=== PATIENT | female | born 1975 | race Caucasian/White ===

== ENCOUNTER 2018-03-07 17:46 | Emergency (ER) | payer MEDICAID ==
[~2018-03-07] VITALS: Ht 172.7 cm; Wt 71.4 kg
[~2018-03-07 17:46] MED LIST: ALPR1TAB2 PO; BENA1TAB9 PO; GABA800T2 PO; METO200T47 PO; MORP-52 PO; OXYC-307 PO; TIZA4CAP PO; ZOLP10TA PO
--- NOTE | 2018-03-07 18:19 | NUR ---
PT TO ED WITH PAINFUL URINATION X2 WEEKS. PT HAS BEEN TAKING PYRIDIUM FOR 2 WEEKS, WITH OUT RESOLUTION OF PAIN. NO N/V/D, FEVER, OR CHILLS. NO BACK OR FLANK PAIN. PT STATES MINIMAL BLOOD DURING URINATION. UA COLLECTED. PT ALSO STATES OUT OF BP MEDS. CURRENT HTN, SBP 180s. PT CONNECTED TO BP CUFF AND OULSE OX. O2 >94%. MD AT BEDSIDE FOR ASSESSMENT. AWAITING UA RESULTS AT THIS TIME. CALL LIGHT WITHIN REACH.
[2018-03-07 18:30] LABS: HCG UR SG 1.015 (1.003-1.030); MICROSCOPIC AUTO
[2018-03-07 18:31] LABS: CULTURE INDICATED? YES
[2018-03-07 19:11] VITALS: BP 146/75
== END 2018-03-07 19:13 | disposition home or self-care (01) ==
LOC: ED 18:17
DX: N30.00 Acute cystitis without hematuria (principal); M54.9 Dorsalgia, unspecified; G89.29 Other chronic pain; I10 Essential (primary) hypertension
CPT/HCPCS: 81001; 81025; 87077; 87086; 87186; 99283